=== PATIENT | female | born 1955 | race Caucasian/White ===

== ENCOUNTER → 2021-04-09 | Day surgery (SDC) | payer MEDICARE, OTHER ==
[~2021-04-09] MED LIST: Ketamine 200 MG/20 ML MDV ONE; Lactated Ringers 1,000 ML IV SCH; Propofol 200 MG/20 ML SDV ONE; fentaNYL 100 MCG/2 ML SDV ONE
== END ==
LOC: CC.SDS 08:55
PROVIDERS: ATTEND Family Medicine
DX: Z12.11 Encounter for screening for malignant neoplasm of colon (principal); D12.5 Benign neoplasm of sigmoid colon; K57.30 Diverticulosis of large intestine without perforation or abscess without bleeding; K21.9 Gastro-esophageal reflux disease without esophagitis; I10 Essential (primary) hypertension; N32.81 Overactive bladder; M85.80 Other specified disorders of bone density and structure, unspecified site; E03.9 Hypothyroidism, unspecified; N89.8 Other specified noninflammatory disorders of vagina; E66.9 Obesity, unspecified; Z88.0 Allergy status to penicillin; Z79.899 Other long term (current) drug therapy; Z79.890 Hormone replacement therapy; Z98.890 Other specified postprocedural states; Z68.34 Body mass index [BMI] 34.0-34.9, adult
CPT/HCPCS: 00812; 88305; J2704; J3010; J7120

== ENCOUNTER 2025-01-17 08:29 | Inpatient (IN) | payer MEDICARE, OTHER ==
[2025-01-17] MEDS ORDERED: Ondansetron 4 MG Tab.DIS PO PRN (11:43)
[2025-01-17] MEDS ORDERED: Ondansetron 4 MG/2 ML SDV IV PRN (11:43)
[2025-01-17] MEDS ORDERED: Non-Formulary Medication 1 Each (Alendronate Sodium [Fosamax] 70 MG Tablet) PO SCH (11:45)
[2025-01-17] MEDS ORDERED: Non-Formulary Medication 1 Each (Ferrous Sulfate [Iron] 325 MG Tablet) PO SCH (11:45)
[2025-01-18] MEDS: Cholecalciferol (Vitamin D3) 5,000 UNIT Tab PO SCH (08:08)
[2025-01-18] MEDS: Oxybutynin 5 MG Tab.ER PO SCH (08:09)
== END 2025-01-22 13:48 | disposition home or self-care (01) | DRG 948 ==
LOC: UNDOADMIN 11:20 → CC.MS 11:20
PROVIDERS: ADMIT Nurse Practitioner; ATTEND Nurse Practitioner
DX: R53.81 Other malaise (principal); Z98.890 Other specified postprocedural states; Z88.0 Allergy status to penicillin; Z79.899 Other long term (current) drug therapy; Z96.642 Presence of left artificial hip joint
CPT/HCPCS: 97110-GP; 97161-GP; 97530-GP; 99306; 99315; A9270-GY